=== PATIENT | male | born 1975 | race Caucasian/White ===

== ENCOUNTER 2017-07-06 14:29 | Emergency (ER) | payer BC ==
[2017-07-06] MEDS ORDERED: Ibuprofen 800 MG TAB ONE (14:40)
== END 2017-07-06 14:51 | disposition home or self-care (01) ==
LOC: SCSER 14:29
DX: B34.9 Viral infection, unspecified (principal); F41.9 Anxiety disorder, unspecified
CPT/HCPCS: 99283

== ENCOUNTER 2019-10-12 14:11 | Inpatient (IN) | payer BC, OTHER ==
[2019-10-12] MEDS ORDERED: Acetaminophen 500 MG TAB ONE (14:53)
[2019-10-12 14:59] LABS: #Basophils 0.1 thou/uL (0.0-0.2); #Lymphocytes 1.6 thou/uL (1.20-3.40); #Monocytes 0.4 thou/uL (0.11-0.59); %Basophils 1.1 % (0.0-1.0); %Eosinophils 0.1 % (0.0-10.0); %Lymphocytes 31.8 % (21.0-51.0); %Monocytes 8.4 % (0.0-10.0); %Neutrophils 58.7 % (42.0-75.0); Hemoglobin 17.1 g/dL (14.0-18.0); Mean Corpuscular Hemoglobin 31.8 pg (27.0-31.0); Mean Corpuscular Volume 90.9 fL (78.0-98.0); Platelet Count 125 thou/uL (130-400); RBC Distribution Width 11.8 % (11.5-14.5); Red Blood Cell (RBC) Count 5.37 mill/uL (4.70-6.10); White Blood Cell (WBC) Count 5.1 thou/uL (4.8-10.8)
--- NOTE | 2019-10-12 15:05 | RAD ---
EXAM: CHEST ONE VIEW HISTORY: Fever, cough, shortness of breath. COMPARISON: 03/11/2016 FINDINGS: The cardiac silhouette and pulmonary vasculature is within normal limits. There is linear and minimal patchy density seen lateral right lung base with linear densities also seen in the left midlung zone. However, finding in the left midlung zone was also present on prior exam and could be related t o an area of mild scarring. There is an additional mild patchy parenchymal density seen in the lateral aspect of the left upper lung zones appear No pleural fluid is identified. No other interval change. IMPRESSION: Minimal linear and patchy densities seen at the right lung base and in the left upper lung zone which could be related to areas of pneumonia/pneumonitis. Follow-up to resolution is recommended.
[2019-10-12 15:21] LABS: ALT (SGPT) 42 U/L (8-55); AST (SGOT) 42 U/L (5-34); Albumin 4.2 g/dL (3.5-5.0); Alkaline Phosphatase 56 U/L (40-110); Anion Gap 19 mmol/L (10-20); BUN (Urea Nitrogen) 9 mg/dL (8.9-20.6); Bilirubin, Total 0.6 mg/dL (0.2-1.2); CK (CPK) 131 U/L (30-200); Calc. Creatinine Clearance 0 mL/min (70-130); Calcium 8.8 mg/dL (7.8-10.44); Carbon Dioxide 18 mmol/L (22-29); Chloride 103 mmol/L (98-107); Estimated GFR-MDRD Greater than 90; Globulin 3.3 g/dL (2.4-3.5); Glucose 99 mg/dL (70-105); Potassium 4.1 mmol/L (3.5-5.1); Protein, Total 7.5 g/dL (6.0-8.3); Sodium 136 mmol/L (136-145)
[2019-10-12] MEDS ORDERED: Azithromycin 500 MG VIAL ONE (16:03)
[2019-10-12] MEDS ORDERED: Ondansetron PF 4 MG/2 ML Vial IVP PRN (16:12)
[2019-10-12] MEDS ORDERED: Ondansetron ODT 4 MG TAB SL PRN (16:12)
[2019-10-12] MEDS ORDERED: Acetaminophen 325 MG TAB PO PRN (16:12)
[2019-10-12] MEDS ORDERED: Sodium Chloride 0.9% 1,000 ML IV SCH (16:12)
[2019-10-12] MEDS ORDERED: Cefepime 2 GM in Sodium Chloride 0.9% 100 ML IVPB SCH (16:15)
[2019-10-12 17:19] LABS: Lactic Acid 0.7 mmol/L (0.5-2.2)
--- NOTE | 2019-10-12 18:56 | HP ---
CHIEF COMPLAINT: Multilobar pneumonia with high probability of coronavirus. HISTORY OF PRESENT ILLNESS: The patient is a 44-year-old male, who has been ill for the last 7 days. 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 His father, however, has ended up in ICU at [facility], intubated with positive coronavirus infection. Mason isolated himself at his home and has been ill all through this week with fever, anorexia , and inability to have any appetite. He has gotten weaker and weaker. He has been febrile. There has been no vomiting or diarrhea. He has had a cough and fever. He finally became so weak that he came to the emergency room for evaluation at [place]. Here, he related his history was immediately put into a limited airflow room, where tests were run concerning the COVID virus. This results will be back until tomorrow. However, on chest x-ray, he was noted to have a multilobar infection and was obviously ill with fever and tachypnea. He did not have hypoxia, however, and was able with 2 L of oxygen to be at 97%. The patient will be admitted for further care and observation. Initial cultures have been taken, and he has received doses of cefepime, Zithromax, and Tylenol. PAST MEDICAL HISTORY: Significant for left meniscal surgery on his knee. Otherwise, no significant hospitalizations or surgeries other than that. SOCIAL HISTORY: He is and works at [employer] Does not smoke or drink. ALLERGIES: HE HAS NO KNOWN ALLERGIES. MEDICATIONS: He is on no routine medicines, although in the past, he had been treated for low testosterone. REVIEW OF SYSTEMS: GENERAL: Significant for fatigue, weakness, fever, and general prostration. HEENT: Significant for nasal drainage and anosmia as well as dysgeusia. CHEST: Significant for cough and oisn-ro-thyivvsz dyspnea. HEART: Negative for palpitations or chest pain. GI: No vomiting or diarrhea. : No blood in urine or stool or dysuria. MUSCULOSKELETAL: Mild general aches and pains. SKIN: No new rashes or lesions, but he has been diaphoretic and hot. NEUROLOGIC: Mentation is intact. No trouble with focus or hallucinations. PHYSICAL EXAMINATION: At the time of admission; VS: 117/79, p 93, O2 sat 98% on 2l nc, , T 101.1 , weight 219 lbs GENERAL: This is a moderately ill adult male, alert, oriented, and cooperative. HEENT: Normocephalic, atraumatic. Pupils are equal, round, and reactive to light. Extraocular muscles are intact. TMs, nares, and pharynx are clear. NECK: Supple. CHEST: Bilateral rales in the right lower lobe on the right and left with crackles in the left upper lobe. HEART: Regular rate and rhythm, tachycardic. ABDOMEN: Soft, nontender without hepatosplenomegaly. : Deferred. EXTREMITIES: Without clubbing, cyanosis, or edema. Normal range of motion present. Symmetrical muscular tone development noted. SKIN: Hot, diaphoretic, slightly reddened. No acute rashes. NEUROLOGIC: Cranial nerves are intact. Gait and cerebral function are untested. Sensory exam is grossly intact. Mental status is nonfocal and intact. LABORATORY DATA: Lab work thus far shows WBCs at 5.1, hemoglobin 17.1, hematocrit 48.9, with platelets at 125. Sodium 136, potassium 4.1, chloride 101, CO2 of 18 , BUN 9, creatinine 0.8, with a GFR of greater than 90, glucose 99, lactic acid 0.7, calcium 8.8, total bilirubin 0.6 with an AST slightly elevated at 42. Other liver functions unremarkable. Chest x-ray shows linear and patchy densities at the right lung base and the left upper lung zone, significant for probable pneumonia. ASSESSMENT: 1) Multifocal pneumonia with high probability of coronavirus infection.- community acquired 2) Acute Hypoxic Resp. Failure 3) Significant COVID Exposure PLAN: Since there is no acute need for breathing treatments and aerosolization of fluids at this time, we will try to go to IMCU and continue IV antibiotics and supportive measures. Pulmonary consultation will be sought, and once his toscano status is noted, we may have additional medications added at that time. We will also provide antiemetics and antipyretics and fluid resuscitation and serial re-evaluation. Job ID: [id number] [facility]
[2019-10-12] MEDS ORDERED: Ondansetron HCl/PF 8 MG in Sodium Chloride 0.9% 50 ML IVPB PRN (20:56)
[2019-10-12] MEDS ORDERED: Diphenoxylate HCl/Atropine Tablet PO PRN (20:57)
[2019-10-12] MEDS: Acetaminophen 325 MG TAB PO PRN (22:00)
[2019-10-12] MEDS: Zinc Sulfate 220 MG CAP PO SCH (22:00)
[2019-10-12] MEDS: Dextrose 5 % And 0.9 % NaCl 1,000 ML IV SCH (22:00)
[2019-10-12 22:59] VITALS: BMI 32.4
[2019-10-13] MEDS: Zolpidem Tartrate 5 MG TAB PO PRN ×2 (00:10→22:40)
[2019-10-13 04:05] LABS: Anion Gap 13 mmol/L (10-20); BUN (Urea Nitrogen) 10 mg/dL (8.9-20.6); Calc. Creatinine Clearance 160 mL/min (70-130); Calcium 7.9 mg/dL (7.8-10.44); Carbon Dioxide 20 mmol/L (22-29); Chloride 106 mmol/L (98-107); Estimated GFR-MDRD Greater than 90; Glucose 113 mg/dL (70-105); Potassium 4.4 mmol/L (3.5-5.1); Sodium 135 mmol/L (136-145)
[2019-10-13] MEDS: Acetaminophen 325 MG TAB PO PRN (04:25)
[2019-10-13 05:26] LABS: Band 6 % (5-11); Hemoglobin 15.4 g/dL (14.0-18.0); Lymphocytes 37 % (21-51); MDiff Complete? YES; Mean Corpuscular Hemoglobin 31.4 pg (27.0-31.0); Mean Corpuscular Volume 92.4 fL (78.0-98.0); Mean Platelet Volume 9.5 fL (7.4-10.4); Monocytes 10 % (0-10); Neutrophil 43 % (42-75); Platelet Count 109 thou/uL (130-400); Platelet Morphology Comment Appears Decreased; RBC Distribution Width 11.9 % (11.5-14.5); Reactive Lymphocytes 4 % (0-10); Red Blood Cell (RBC) Count 4.91 mill/uL (4.70-6.10)
[2019-10-13] MEDS: Dextrose 5 % And 0.9 % NaCl 1,000 ML IV SCH (06:08)
--- NOTE | 2019-10-13 09:08 | RAD ---
CHEST ONE VIEW: HISTORY: Respiratory distress. COMPARISON: 10/12/2019 FINDINGS: The cardiac silhouette is magnified by projection. There are scattered interstitial and alveolar opac ities seen within the right mid and lower lung zones as well as in the left mid and upper lung zones. Interstitial prominence at the right lung base does appear increased, some of which could related to shallow depth of inspiration. No obvious pleural fluid is seen. No other interval change. IMPRESSION: Scattered interstitial and alveolar opacities, worrisome for multifocal pneumonia/pneumonitis. Follow up to resolution is recommended. POS: OFF
--- NOTE | 2019-10-13 11:38 | CON ---
DATE OF CONSULTATION: 10/13/2019 SERVICE: Pulmonary Medicine. HISTORY OF PRESENT ILLNESS: The patient is a 44-year-old white male with past medical history significant for positive exposure to COVID. His dad is currently on the ventilator at [facility]. About a week ago, he started having some symptoms that could be consistent with a virus. He had a lack a taste and inability to smell. Over the course of last week, he has been having fevers as high as 103. They would happen almost continuously. He did not have any shortness of breath until one day prior to presentation. In the emergency per room, he was mildly hypoxemic. He is placed on 2 L nasal cannula, and he feels much better at this point. There were no significant overnight events. At this point, he seems to be fairly comfortable without respiratory difficulties. He does not have any conversational dyspnea. A chest x-ray is consistent with COVID. PAST MEDICAL HISTORY: None. PAST SURGICAL HISTORY: Left knee surgery. SOCIAL HISTORY: He is and works at [email or web address]. He does not use any alcohol, tobacco, or illicit drugs. He has no exposure to chemicals, dust, asbestos, or tuberculosis, otherwise. FAMILY HISTORY: Positive for COVID. ALLERGIES: NO KNOWN DRUG ALLERGIES. MEDICATIONS: List of his inpatient medications was reviewed. I have discontinued the Rocephin. REVIEW OF SYSTEMS: General, head, ears, eyes, nose, throat, cardiovascular, respiratory, GI, , musculoskeletal, neurologic, and skin is negative except as mentioned in the HPI. PHYSICAL EXAMINATION: VITAL SIGNS: T-max 102.0; pulse 74; blood pressure 116/87; respirations 21; and saturation 97%, currently on 2 L nasal cannula. GENERAL: The patient is awake and alert, in no apparent distress. LUNGS: Good air entry bilaterally. Crackles are present. HEART: Normal rate, regular. ABDOMEN: Soft, nontender, and nondistended. Bowel sounds are positive. MUSCULOSKELETAL: No cyanosis or clubbing. There is no pitting in bilateral lower extremities. NEUROLOGIC: Grossly nonfocal. LABORATORY DATA: WBC 5.1, is downtrending to 4.0; hemoglobin 15.4; and platelets 109,000, these are downtrending. Lymphocyte percentage and absolute count fall within the normal limits for now, but are downtrending. Basic metabolic profile and liver function studies are unremarkable. Lactate is unremarkable. Respiratory virus PCR is negative. Blood cultures x2, group A strep, and influenza A and B are negative. IMAGING DATA: Chest x-ray demonstrates scattered alveolar infiltrates are present with little interstitial fullness. Cardiac silhouette appears to be normal. Lung volumes are small. No overt consolidating lesions are identified. ASSESSMENT: 1. Acute hypoxic respiratory failure. 2. Community-acquired pneumonia. 3. Positive COVID exposure, significant. DISCUSSION AND PLAN: This patient is COVID until proven otherwise x2. The initial COVID is currently pending. We will go ahead and put him on the azithromycin (already initiated) and Plaquenil. Rocephin will be interrupted. At this point , he has no need for nebulized medications. Steroids will obviously be avoided. Pulmonary will follow while the patient remains in-house for the time being. 70 minutes have been devoted to this patient in various activities. I personally reviewed all imaging studies and laboratory data noted within this document. For fifty percent of this time, I was interacting with the patient at the bedside or coordinating care with the care team. For the remainder of the time I was immediately available to the patient in the hospital unit. Job ID: [id number] MTDD
[2019-10-13] MEDS ORDERED: Hydroxychloroquine Sulfate 200 MG TAB PO SCH ×2 (11:45→13:30)
[2019-10-13] MEDS: Azithromycin 500 MG in Sodium Chloride 0.9% 250 ML 250 ML IVPB SCH (16:44)
[2019-10-13] MEDS: cefTRIAXone\\ROCEPHIN 1 GM in Sodium Chloride 0.9% 100 ML IVPB SCH (18:35)
[2019-10-13] MEDS: Zinc Sulfate 220 MG CAP PO SCH (19:50)
[2019-10-13] MEDS: Hydroxychloroquine Sulfate 200 MG TAB PO SCH (20:26)
[2019-10-14 05:38] LABS: #Lymphocytes 1.3 thou/uL (1.20-3.40); #Monocytes 0.4 thou/uL (0.11-0.59); #Neutrophils 3.4 thou/uL (1.40-6.50); %Basophils 0.9 % (0.0-1.0); %Eosinophils 0.5 % (0.0-10.0); %Lymphocytes 25.2 % (21.0-51.0); %Monocytes 8.2 % (0.0-10.0); %Neutrophils 65.2 % (42.0-75.0); Hemoglobin 15.5 g/dL (14.0-18.0); Mean Corpuscular HGB CONC 34.6 g/dL (32.0-36.0); Mean Corpuscular Hemoglobin 31.7 pg (27.0-31.0); Mean Corpuscular Volume 91.4 fL (78.0-98.0); Mean Platelet Volume 8.9 fL (7.4-10.4); Platelet Count 129 thou/uL (130-400); RBC Distribution Width 11.5 % (11.5-14.5); Red Blood Cell (RBC) Count 4.89 mill/uL (4.70-6.10); White Blood Cell (WBC) Count 5.3 thou/uL (4.8-10.8)
[2019-10-14] MEDS: Hydroxychloroquine Sulfate 200 MG TAB PO SCH ×2 (09:15→19:42)
--- NOTE | 2019-10-14 13:35 | PRG ---
DATE OF SERVICE: 10/14/2019 SERVICE: Pulmonary Medicine. INTERVAL HISTORY: The patient is about stable. He is still having fevers. He does not have much in the way of difficulty breathing. We have taken him down from a flow of 3 L to 1 L. He really did not notice that change at all. His saturations are fantastic. Otherwise, there has been no interval change to his condition. PHYSICAL EXAMINATION: VITAL SIGNS: T-max 102.9, pulse 95, blood pressure 122/73, respirations 16, saturation 99% on 1 L nasal cannula. GENERAL: The patient is awake and alert, in no apparent distress. LUNGS: Decent air entry. No prolonged expiratory phase is present. Minimal crackles are present and scattered about bilateral lung mckeon. HEART: Normal rate and regular. ABDOMEN: Soft, nontender, nondistended. Bowel sounds are positive. MUSCULOSKELETAL: No cyanosis or clubbing. No pitting. NEUROLOGIC: Grossly nonfocal. LABORATORY DATA: WBC 5.3, hemoglobin 15.5, and platelets 129,000, and rebounding. Basic metabolic profile is unremarkable/improving. LDH, CRP, and ferritin are all quite elevated, consistent with what we know about COVID. ASSESSMENT: 1. Acute hypoxic respiratory failure, improving. 2. Community-acquired pneumonia secondary to coronavirus disease. DISCUSSION AND PLAN: We have him on Plaquenil and azithromycin. Supportive care will be continued. I will repeat liver function studies, and chest x-ray tomorrow morning. If things are more or less stable, and his fever profile continues to improve, we could consider him for discharge in the morning, if he can tolerate room air. When he is out of the hospital, he understands that he must self- quarantine for a minimum of 14 days. Job ID: [id number] [facility]
[2019-10-14] MEDS ORDERED: Temazepam 15 MG CAP PO PRN (14:16)
[2019-10-14] MEDS: cefTRIAXone\\ROCEPHIN 1 GM in Sodium Chloride 0.9% 100 ML IVPB SCH (17:09)
[2019-10-14] MEDS: Azithromycin 500 MG in Sodium Chloride 0.9% 250 ML 250 ML IVPB SCH (17:16)
[2019-10-14] MEDS: Zinc Sulfate 220 MG CAP PO SCH (19:42)
[2019-10-14] MEDS ORDERED: Ondansetron PF 4 MG/2 ML Vial SLOW IVP PRN (22:38)
[2019-10-15 05:57] LABS: ALT (SGPT) 75 U/L (8-55); AST (SGOT) 65 U/L (5-34); Albumin 3.6 g/dL (3.5-5.0); Alkaline Phosphatase 49 U/L (40-110); Anion Gap 15 mmol/L (10-20); BUN (Urea Nitrogen) 10 mg/dL (8.9-20.6); Bilirubin, Total 0.7 mg/dL (0.2-1.2); Calc. Creatinine Clearance 178 mL/min (70-130); Calcium 8.4 mg/dL (7.8-10.44); Carbon Dioxide 21 mmol/L (22-29); Chloride 100 mmol/L (98-107); Estimated GFR-MDRD Greater than 90; Globulin 3.2 g/dL (2.4-3.5); Glucose 99 mg/dL (70-105); Potassium 4.2 mmol/L (3.5-5.1); Protein, Total 6.8 g/dL (6.0-8.3); Sodium 132 mmol/L (136-145)
[2019-10-15 06:36] LABS: #Lymphocytes 1.4 thou/uL (1.20-3.40); #Monocytes 0.5 thou/uL (0.11-0.59); #Neutrophils 5.4 thou/uL (1.40-6.50); %Basophils 0.4 % (0.0-1.0); %Eosinophils 0.1 % (0.0-10.0); %Lymphocytes 18.6 % (21.0-51.0); %Monocytes 6.9 % (0.0-10.0); Hemoglobin 15.1 g/dL (14.0-18.0); Mean Corpuscular HGB CONC 34.4 g/dL (32.0-36.0); Mean Corpuscular Hemoglobin 31.7 pg (27.0-31.0); Mean Corpuscular Volume 92.1 fL (78.0-98.0); Mean Platelet Volume 11.4 fL (7.4-10.4); Platelet Count 101 thou/uL (130-400); Platelet Morphology Comment Appears Decreased; RBC Distribution Width 11.7 % (11.5-14.5); Red Blood Cell (RBC) Count 4.77 mill/uL (4.70-6.10); White Blood Cell (WBC) Count 7.3 thou/uL (4.8-10.8)
[2019-10-15] MEDS ORDERED: Ondansetron ODT 4 MG TAB SL SCH (08:30)
--- NOTE | 2019-10-15 08:30 | PRG ---
DATE OF SERVICE: 10/15/2019 SERVICE: Pulmonary Medicine. INTERVAL HISTORY: The patient is doing fine from Respiratory standpoint. He is breathing comfortably. No complaints of chest discomfort, fevers, or chills. He is having rare coughing paroxysms that are painful with neck phlegm that will not liberate. Otherwise, there has been minimal change to his condition. His temperatures are persisting. Maximum temperature overnight was 102.9. Otherwise, there were no significant events. He is currently on room air. His room air are 85%. On 2 liters via nasal canula, his sats are 92%. The patient's father had a limited disease course, so his mother's expectations are that he should be better by now. I told her this virus will run its course and there were no interventions other than time and support that we currently had to offer. She did not seem satisfied with that answer. She wanted me to tell her I was certain that he would be OK, and I told her I would not lie to her and that there was a low, but real chance of a bad outcome. She was upset with me for making that suggestion. PHYSICAL EXAMINATION: VITAL SIGNS: T-max 102.9, pulse 100, blood pressure 131/88, respirations 18, and saturation 98% on room air. GENERAL: The patient is awake and alert, in no apparent distress. LUNGS: Decent air entry. A little bit of crackling is present, scattered throughout bilateral lung mckeon. HEART: Normal rate. Regular. ABDOMEN: Soft, nontender, and nondistended. Bowel sounds are positive. MUSCULOSKELETAL: No cyanosis or clubbing. There is no pitting in the bilateral lower extremities. NEUROLOGIC: Grossly nonfocal. LABORATORIES: Absolute lymphocyte count is up-trending as is his white blood cell count. That being said, his percentage of lymphocytes is downtrending. AST and ALT are gently up-trending. Procalcitonin remains unremarkable. CRP, LDH, and ferritin are all slightly elevated. Respiratory virus panel, blood cultures are negative. IMAGING: Chest x-ray demonstrates increasing alveolar and interstitial infiltrates throughout bilateral lung mckeon. ASSESSMENT: 1. Acute hypoxic respiratory failure. 2. Community-acquired pneumonia, secondary to coronavirus. DISCUSSION AND PLAN: We will continue azithromycin and Plaquenil. The infiltrates are getting worse. Absolute lymphocyte count is improving, though the AST and ALT are starting to trend upward. The patient has a chance of full recovery, and it is reassuring that his disease process is moving slowly. I'm told that the worst days are day 7 and 8 of fever, and we are at day 8. If he develops increasing respiratory failure through time, we will consider adding antiviral therapy. At this point , he would not qualify. If he remains inhouse, Pulmonary will continue to follow. Frankly , it would be nice to see his fever profile improve. I will look into whether treating a fever is helpful or harmful based on other's experiences. Job ID: [id number] [facility]TDD
--- NOTE | 2019-10-15 08:47 | RAD ---
PORTABLE CHEST 1 VIEW: DATE: 10/15/2019. TIME: 4:42 AM. HISTORY: Followup infiltrates. Respiratory distress. COMPARISON: 10/13/2019. FINDINGS/IMPRESSION: The heart size is prominent but stable. There is continued elevation of the right hemidiaphragm. S cattered interstitial and alveolar opacities are again seen. No pneumothoraces or large effusions ar e identified. POS: MZA
[2019-10-15] MEDS ORDERED: guaiFENesin ER 600 MG TAB PO SCH (09:00)
[2019-10-15] MEDS: Hydroxychloroquine Sulfate 200 MG TAB PO SCH (09:46)
[2019-10-15 15:24] VITALS: BP 126/82; TEMP 100
--- NOTE | 2019-10-17 09:29 | PQF ---
DILMA LING JOSEPH [id number] CLINICAL DOCUMENTATION CLARIFICATION FORM: POST DISCHARGE Addendum to original discharge summary date: ____ Late entry note date: __ DATE:10/17/2019 ATTN:ERAN WOODY Please exercise your independent, professional judgment in responding to the clarification form. Clinical indicators are provided on the bottom of this form for your review Please check appropriate box(s) to clarify if the following diagnosis has been ruled in or ruled out: Sepsis [ ] Ruled in diagnosis [ ] Continue to treat [ ] Resolved [ ] Ruled out diagnosis [ ] Cannot rule out diagnosis [ ] Other diagnosis [ x] Unable to determine For continuity of documentation, please document condition throughout progress notes and discharge summary. Thank You. CLINICAL INDICATORS - SIGNS / SYMPTOMS / LABS Sepsis @ 16.00-Documented in ED on 10/11 by Leandro Sánchez MD [id number] in ED on 10/11 by Leandro Sánchez MD [id number] in ED on 10/11 by Leandro Sánchez MD SIRS scoring:Productive coug/PNA, Yes patient did meet at least 1 criteria for step A.,Temperature <36 C(96.8F)- or - >38 C (100.9F) , Heart rate >90 , Yes , Patient did meet at least 2 criteria for Step B-Documented in ED on 10/11 by Leandro Sánchez MD A sepsis alert was activated due to patient meeting the activation requirements in Step A and Step B-Documented in ED on 10/11 by Leandro Sánchez MD He will be treated for sepsis-Documented in ED on 10/11 by Leandro Sánchez MD WBC-4.0-Documented in Laboratory Community-acquired pneumonia secondary to coronavirus-Documented in PN on 10/14 by Eran Woody MD Acute hypoxic respiratory failure-Documented in PN on 10/14 by Eran Woody MD RISK FACTORS Community-acquired pneumonia secondary to coronavirus-Documented in PN on 10/14 by Eran Woody MD TREATMENTS Will continue azithromycin and Plaquenil-Documented in PN on 10/14 by Eran Woody MD Cefepime 2 gm IV-Documented in Medication snapshot Rocephin 1 gm IV-Documented in Medication snapshot Azithromycin 500 mg IV-Documented in Medication snapshot [employer] [facility] [employer] Win[employer] Viewer (This form is maintained as a part of the permanent medical record) 2014 [employer]. All Rights Reserved [email or web address]
== END 2019-10-15 12:05 | disposition left against medical advice (07) | DRG 871 ==
LOC: ERS 14:11 → IMCU/EMU 16:34 → T4-B 10-13 21:05
PROVIDERS: ADMIT Specialist; ATTEND Specialist
PROC: 8E0ZXY6 Isolation (ICD-10-PCS; principal; 2019-10-12)
DX: A41.9 Sepsis, unspecified organism (principal); J12.81 Pneumonia due to SARS-associated coronavirus; J96.01 Acute respiratory failure with hypoxia; Z98.890 Other specified postprocedural states; B97.29 Other coronavirus as the cause of diseases classified elsewhere
CPT/HCPCS: 36415; 71045; 80048; 80053; 82550; 82728; 83605; 83615; 84145; 85025; 86140; 87040; 87081; 87430; 87633; 87804; 96365; J0456; J0692; J0696; J2405; J3490; J7050; Q0162; U0001

== ENCOUNTER → 2020-02-28 | Outpatient (CLI) | payer BC, OTHER ==
[2020-02-29 13:44] LABS: SARS-CoV-2 MS2 Positive; SARS-CoV-2 N Gene Negative; SARS-CoV-2 S Gene Negative; SARS-CoV-2 by NAA Not Detected (NotDetected); SARS-CoV-2 orf1ab Negative
== END ==
LOC: LABBT 08:00
PROVIDERS: ATTEND Family Medicine
DX: Z20.828 Contact with and (suspected) exposure to other viral communicable diseases (principal)
CPT/HCPCS: 87635; U0003

== ENCOUNTER 2020-04-21 19:30 | Outpatient (CLI) | payer BC | END 2020-04-21 19:31 | disposition home or self-care (01) | LOC: SLEEPLAB 19:30 | PROVIDERS: ATTEND Family Medicine | DX: G47.33 Obstructive sleep apnea (adult) (pediatric) (principal); R53.83 Other fatigue; K21.9 Gastro-esophageal reflux disease without esophagitis; R06.83 Snoring; F41.9 Anxiety disorder, unspecified; G47.00 Insomnia, unspecified | CPT/HCPCS: 95811 ==